=== PATIENT | male | born 1990 | race Caucasian/White ===

== ENCOUNTER 2017-01-16 10:58 | Emergency (ER) | payer BC ==
[2017-01-16] MEDS ORDERED: Ketorolac INJ* 30 MG/ML 1 ML VIAL IV ONE (11:25)
[2017-01-16] MEDS ORDERED: diPHENhydraMINE IV* 50 MG/ML 1 ml VIAL (BENADRYL) IV ONE ×2 (11:25→12:12)
[2017-01-16] MEDS ORDERED: NS 0.9% 1000 ML* 1,000 ML IV ONE ×2 (11:25→14:09)
[2017-01-16] MEDS ORDERED: Metoclopramide IV* 5 MG/ML 2 ML VIAL IV ONE (11:25)
--- NOTE | 2017-01-16 11:49 | RAD ---
INDICATION: Headache. COMPARISON: There are no prior studies available for comparison. TECHNIQUE: Contiguous axial sections of the brain were obtained from the skull base to the vertex without contrast. FINDINGS: The ventricles, cisterns and sulci are within normal limits. No significant focal abnormality or mass effect is seen. There is no evidence for hemorrhage. There is a small cyst or prominent perivascular space in the left temporal lobe. There is near complete opacification of the sphenoid sinus. The visualized portion of the paranasal sinuses and mastoid air cells otherwise appear clear. IMPRESSION: 1. NO EVIDENCE FOR ACUTE INTRACRANIAL ABNORMALITY. 2. SPHENOID SINUSITIS.
[2017-01-16 11:58] LABS: Hematocrit 46 % (42-52); Hemoglobin 15.7 g/dl (14.0-18.0); Mean Corpuscular HGB Conc 34 g/dl (31-36); Mean Corpuscular Hemoglobin 30 pg (27-31); Mean Corpuscular Volume 87 fL (80-94); Mean Platelet Volume 9 um3 (7.4-10.4); Red Blood Count 5.23 10^6/ul (4.0-5.4); Red Cell Distribution Width 13 % (10.5-15); White Blood Count 8.9 10^3/ul (3.5-10.8)
[2017-01-16 12:13] LABS: Albumin 4.8 g/dL (3.2-5.2); BUN/Creatinine Ratio 12.6 (8-20); Calcium 9.7 mg/dL (8.6-10.3); EGFR African American 103.8 (>60); EGFR Non-African American 80.7 (>60); Globulin 2.8 g/dL (2-4); Potassium 3.9 mmol/L (3.5-5.0); Total Bilirubin 0.7 mg/dL (0.2-1.0); Total Protein 7.6 g/dL (6.4-8.9)
[2017-01-16 13:29] LABS: Erythrocyte Sed Rate 9 mm/Hr (0-14)
[2017-01-16 13:59] LABS: Urine Bilirubin Negative (Negative); Urine Glucose Negative (Negative); Urine Nitrite Negative (Negative)
[2017-01-16 15:37] VITALS: BP 129/79
--- NOTE | 2017-01-17 09:03 | ED ---
Adriana Del Rio Alfonso, scribed for Anthony Hogue MD on 01/16/17 at 1136 . Headache - HPI Summary HPI Summary: This patient is a 26 year old male presenting to [facility] for a migraine which began two weeks ago. The pain starts in his eyes and radiates to the temporal region. It does not radiate to his neck. His pain is rated 5.5/10 in severity. It is described as a throbbing pain that is squeezing my head like a melon. Sx are aggravated by light and noise and alleviated by nothing. He reports vomiting in the mornings. He denies fever or chills. Allergies to Penicillin and Amoxicillin. - History Of Current Complaint Chief Complaint: EDHeadache Stated Complaint: HEADACHE Time Seen by Provider: 01/16/17 11:16 Hx Obtained From: Patient Onset/Duration: Sudden Onset, Started weeks ago - 2 weeks ago, Still Present Initially Headache Was: Initial Pain Scale(0-10)= - 5.5, Moderate Currently Pain Is: Current Pain Scale(0-10)= - 5.5 Timing: Constant Character: Throbbing, Pressure - squeezing my head like a melon Location of Headache: Frontal - Starts in eyes, Temporal - Radiates to Radiates to: Radiates to temporal; Does not radiate to neck Aggravating Factor: Bright Lights, Other - noise Allevating Factors: Nothing Associated Signs And Symptoms: Vomiting - In the mornings - Allergies/Home Medications Allergies/Adverse Reactions: Allergies Allergy/AdvReac Type Severity Reaction Status Date / Time Amoxicillin Allergy Rash Verified 01/16/17 11:33 Penicillins Allergy Rash Verified 01/16/17 11:33 PMH/Surg Hx/FS Hx/Imm Hx Musculoskeletal History: Reports: Hx Arthritis - LEFT FOOT Sensory History: Reports: Hx Contacts or Glasses - GLASSES Denies: Hx Hearing Aid Opthamlomology History: Reports: Hx Contacts or Glasses - GLASSES - Surgical History Surgery Procedure, Year, and Place: T+A A CHILD. LEFT FOOT- SUBTULAR FUSION - [facility] [place]-2014 Hx Anesthesia Reactions: Yes - EMERGENCE DELIRIUM WITH T&A Infectious Disease History: Denies: Traveled Outside the [place] in Last 30 Days - Family History Known Family History: Positive: Cardiac Disease - Both grandfathers - Social History Alcohol Use: Rare Hx Substance Use: No Substance Use Type: Reports: None Hx Tobacco Use: No Smoking Status (MU): Never Smoked Tobacco Review of Systems Negative: Fever, Chills Positive: Vomiting - In the mornings Positive: Headache - migraine which began two weeks ago All Other Systems Reviewed And Are Negative: Yes Physical Exam - Summary Physical Exam Summary: VITAL SIGNS: Reviewed. GENERAL: Patient is a well-developed and nourished MALE who is lying comfortable in the stretcher. Patient is not in any acute respiratory distress. HEAD AND FACE: No signs of trauma. No ecchymosis, hematomas or skull depressions. No sinus tenderness. EYES: PERRLA, EOMI x 2, No injected conjunctiva, no nystagmus. No photophobia. EARS: Hearing grossly intact. Ear canals and tympanic membranes are within normal limits. MOUTH: Oropharynx within normal limits. NECK: Supple, trachea is midline, no adenopathy, no JVD, no carotid bruit, no c- spine tenderness, neck with full ROM. No meningeal signs, no Kernig's or brudzinskis signs. CHEST: Symmetric, no tenderness at palpation LUNGS: Clear to auscultation bilaterally. No wheezing or crackles. CVS: Regular rate and rhythm, S1 and S2 present, no murmurs or gallops appreciated. ABDOMEN: Soft, non-tender. No signs of distention. No rebound no guarding, and no masses palpated. Bowel sounds are normal. EXTREMITIES: FROM in all major joints, no edema, no cyanosis or clubbing. NEURO: Alert and oriented x 3. No acute neurological deficits. Speech is normal and follows commands. SKIN: Dry and warm Triage Information Reviewed: Yes Vital Signs On Initial Exam: Initial Vitals Temp Pulse Resp BP Pulse Ox 97.9 F 71 20 146/73 99 01/16/17 11:00 01/16/17 11:00 01/16/17 11:00 01/16/17 11:00 01/16/17 11:00 Vital Signs Reviewed: Yes Diagnostics - Vital Signs Vital Signs Temp Pulse Resp BP Pulse Ox 01/16/17 11:00 97.9 F 71 20 146/73 99 - Laboratory Result Diagrams: 01/16/17 11:50 01/16/17 11:50 Lab Statement: Any lab studies that have been ordered have been reviewed, and results considered in the medical decision making process. - CT Brain CT CT Interpretation: No Acute Changes - 1. NO EVIDENCE FOR ACUTE INTRACRANIAL ABNORMALITY. 2. SPHENOID SINUSITIS. CT Interpretation Completed By: Radiologist Re-Evaluation - Re-Evaluation First Eval Re-Evaluation Time: 14:23 Change: Improved Comment: Symptoms have improved. Prescription for pain medication and Z-JUSTO. Will discharge home for follow up with PCP. Headache Course/Dx - Course Assessment/Plan: Test results within normal limits. I did a CT head as per the patient reported no past history of headaches. In the ED course, patientt was given IV fluid, Benadryl, Reglan, and Torodol for the headache. The symptoms significantly improved. The CT head show patient has sphenoid sinusitis. Since the patient has been having the symptoms for the last 10 days, I will place on patient on azithromycin. The patient does not have any fever, headache has improved, patient denies any photophobia or neck pain currently, therefore I have low suspicion of meningitis. Therefore, I do not see the need for a lumbar puncture. I have low suspicion for a brain bleed since the sx improved. The patient was advised to return to the ED if any of the symptoms return or worsen. He understands and agrees. - Diagnoses Provider Diagnoses: Acute sinusitis, Headache Discharge - Discharge Plan Condition: Stable Disposition: HOME Prescriptions: Azithromycin TAB* [Zithromax TAB (Z-JUSTO) 250 mg #6 tabs] 2 tab PO .TODAY, THEN 1 DAILY #1 justo HYDROcodone/ACETAMIN 5-325 MG* [[place] 5-325 TAB*] 1 tab PO Q6H PRN #10 tab MDD 4 tabs / day PRN Reason: Pain Patient Education Materials: Sinusitis (ED), General Headache (ED) Referrals: [facility] PHYSICIAN REFERRAL [Outside] - 3 Days The documentation as recorded by the Adriana zhang Alfonso accurately reflects the service I personally performed and the decisions made by me, Anthony Hogue MD.
== END 2017-01-16 15:38 | disposition home or self-care (01) ==
LOC: ED 10:58
DX: J01.90 Acute sinusitis, unspecified (principal); R51 Headache; R11.10 Vomiting, unspecified
CPT/HCPCS: 36415; 70450; 80053; 81003; 85025; 85652; 96374; 96375; 99283; J1200; J1885

== ENCOUNTER 2017-04-21 04:41 | Emergency (ER) | payer BC ==
[2017-04-21 04:58] VITALS: BP 140/85
[2017-04-21] MEDS ORDERED: Clindamycin CAP* 150 MG PO ONE (07:24)
--- NOTE | 2017-04-21 07:35 | ED ---
Shivam Del Rio Angela, scribed for Anthony Rose MD on 04/21/17 at 0724 . Throat Pain/Nasal Congestion - HPI Summary HPI Summary: This pt is a 26 y/[facility] upper [facility] and pain x4 days. Pt reports that he had an abscess tooth last year and this feels like one. He has taken ibuprofen for the pain, his last dose was today at 0400. He denies fever, chills. Pt denies smoking, drinking alcohol. He reports he is a allergic to amoxicillin and penicillin. - History of Current Complaint Chief Complaint: EDDentalPain Time Seen by Provider: 04/21/17 07:19 Hx Obtained From: Patient Onset/Duration: Lasting Days - Allergies/Home Medications Allergies/Adverse Reactions: Allergies Allergy/AdvReac Type Severity Reaction Status Date / Time Amoxicillin Allergy Rash Verified 01/16/17 11:33 Penicillins Allergy Rash Verified 01/16/17 11:33 PMH/Surg Hx/FS Hx/Imm Hx Endocrine/Hematology History: Denies: Hx Diabetes Cardiovascular History: Denies: Hx Hypertension Musculoskeletal History: Reports: Hx Arthritis - LEFT FOOT Sensory History: Reports: Hx Contacts or Glasses - GLASSES Denies: Hx Hearing Aid Opthamlomology History: Reports: Hx Contacts or Glasses - GLASSES - Surgical History Surgery Procedure, Year, and Place: T+A A CHILD. LEFT FOOT- SUBTULAR FUSION - [facility] [place] Hx Anesthesia Reactions: Yes - EMERGENCE DELIRIUM WITH T&A Infectious Disease History: No Infectious Disease History: Denies: Traveled Outside the [place] in Last 30 Days - Family History Known Family History: Positive: Cardiac Disease - Both grandfathers, Hypertension, Other - Cancer - mother's side - Social History Occupation: Employed Full-time Alcohol Use: Rare Hx Substance Use: No Substance Use Type: Reports: None Hx Tobacco Use: No Smoking Status (MU): Never Smoked Tobacco Review of Systems Negative: Fever, Chills Eyes: Negative Positive: Dental Pain - right upper face pain and swelling Cardiovascular: Negative Respiratory: Negative Gastrointestinal: Negative Genitourinary: Negative Musculoskeletal: Negative Skin: Negative Neurological: Negative All Other Systems Reviewed And Are Negative: Yes Physical Exam Triage Information Reviewed: Yes Vital Signs On Initial Exam: Initial Vitals Temp Pulse Resp BP Pulse Ox 99.1 F 92 18 140/85 97 04/21/17 04:55 09/11/17 04:55 04/21/17 04:55 04/21/17 04:55 04/21/17 04:55 Vital Signs Reviewed: Yes Appearance: Positive: Well-Appearing, No Pain Distress Skin: Positive: Warm, Skin Color Reflects Adequate Perfusion Head/Face: Positive: Normal Head/Face Inspection Eyes: Positive: EOMI, LOBO Dental: Positive: Gross Decay/Caries @ - tooth number 2 with gingival swelling. Neck: Positive: Supple, Nontender Respiratory/Lung Sounds: Positive: Clear to Auscultation, Breath Sounds Present Cardiovascular: Positive: RRR. Negative: Murmur Abdomen Description: Positive: Nontender Musculoskeletal: Positive: Strength/ROM Intact Neurological: Positive: Sensory/Motor Intact, Alert, Oriented to Person Place, Time, CN Intact II-III Psychiatric: Positive: Normal Diagnostics - Vital Signs Vital Signs Temp Pulse Resp BP Pulse Ox 04/21/17 04:55 99.1 F 92 18 140/85 97 - Laboratory Lab Statement: Any lab studies that have been ordered have been reviewed, and results considered in the medical decision making process. EENT Course/Dx - Course Course Of Treatment: 26 yr old male with dental infection. Rx with clindamycin. He has Dr Francisco as a prior provider of dental care. - Diagnoses Provider Diagnoses: Dental abscess Discharge - Discharge Plan Condition: Good Disposition: HOME Prescriptions: Clindamycin Cap(NF) [Clindamycin Cap 300 mg Cap(NF)] 300 mg PO Q6H #40 cap Patient Education Materials: Dental Abscess (ED) Referrals: Villa Francisco MD [Doctor of Dental Medicine] - 3 Days No Primary Care Phys,NOPCP [Primary Care Provider] - The documentation as recorded by the Shivam zhang Angela accurately reflects the service I personally performed and the decisions made by Rose kim Walter, MD.
== END 2017-04-21 07:38 | disposition home or self-care (01) ==
LOC: ED 04:41
DX: K04.7 Periapical abscess without sinus (principal)
CPT/HCPCS: 99282; A9270-GY

== ENCOUNTER 2019-09-09 10:37 | Emergency (ER) | payer BC, OTHER ==
--- NOTE | 2019-09-09 11:17 | ED ---
Influenza-Like Illness - HPI Summary HPI Summary: Patient is a 29-year-old male who presents emergency department for flulike symptoms 4 days. Patient notes nasal congestion, ear fullness, sore throat and mild cough. 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 No significant past medical history. Symptoms are mild in severity. No current modifying factors. - History of Current Complaint Chief Complaint: EDFluSymptoms Time Seen by Provider: 09/09/19 11:07 Hx Obtained From: Patient - Allergy/Home Medications Allergies/Adverse Reactions: Allergies Allergy/AdvReac Type Severity Reaction Status Date / Time amoxicillin AdvReac Rash Verified 09/09/19 10:40 Penicillins AdvReac Rash Verified 09/09/19 10:40 PMH/Surg Hx/FS Hx/Imm Hx Previously Healthy: Yes Endocrine/Hematology History: Denies: Hx Diabetes Cardiovascular History: Denies: Hx Hypertension Musculoskeletal History: Reports: Hx Arthritis - LEFT FOOT Sensory History: Reports: Hx Contacts or Glasses - GLASSES Denies: Hx Hearing Aid Opthamlomology History: Reports: Hx Contacts or Glasses - GLASSES - Surgical History Surgery Procedure, Year, and Place: T+A A CHILD. LEFT FOOT- [place] [facility] [place] Hx Anesthesia Reactions: Yes - EMERGENCE DELIRIUM WITH T&A Infectious Disease History: No Infectious Disease History: Denies: Traveled Outside the [place] in Last 30 Days - Family History Known Family History: Positive: Cardiac Disease - Both grandfathers, Hypertension, Other - Cancer - mother's side, Non-Contributory - Social History Occupation: Employed Full-time Lives: With Family Alcohol Use: Rare Hx Substance Use: No Substance Use Type: Reports: None Hx Tobacco Use: No Smoking Status (MU): Never Smoked Tobacco Review of Systems Constitutional: Negative Negative: Fever Eyes: Negative Positive: Sore Throat, Nasal Discharge Cardiovascular: Negative Positive: Cough. Negative: Shortness Of Breath Gastrointestinal: Negative Negative: Abdominal Pain, Vomiting, Diarrhea Musculoskeletal: Negative Skin: Negative Negative: Rash Neurological: Negative All Other Systems Reviewed And Are Negative: Yes Physical Exam Triage Information Reviewed: Yes Vital Signs On Initial Exam: Initial Vitals Temp Pulse Resp BP Pulse Ox 97.4 F 94 18 144/84 96 09/09/19 10:39 09/09/19 10:39 09/09/19 10:39 09/09/19 10:39 09/09/19 10:39 Vital Signs Reviewed: Yes Appearance: Positive: Well-Appearing - Patient sitting on bed in no acute distress. Skin: Positive: Warm, Dry Head/Face: Positive: Normal Head/Face Inspection Eyes: Positive: Normal, EOMI, LOBO, Conjunctiva Clear ENT: Positive: Pharyngeal erythema, Nasal congestion, Uvula midline, Other - Fluid behind bilateral TMs without erythema.. Negative: Tonsillar swelling, Tonsillar exudate, Muffled voice, Hoarse voice Neck: Positive: Supple, Nontender, No Lymphadenopathy Cardiovascular: Positive: Normal, RRR Neurological: Positive: Normal, CN Intact II-III Psychiatric: Positive: Affect/Mood Appropriate Procedures - Sedation Patient Received Moderate/Deep Sedation with Procedure: No Diagnostics - Vital Signs Vital Signs Temp Pulse Resp BP Pulse Ox 09/09/19 10:39 97.4 F 94 18 144/84 96 - Laboratory Lab Results: Lab Results 09/09/19 Range/Units 10:47 Influenza A (Rapid) Pending Influenza B (Rapid) Pending Lab Statement: Any lab studies that have been ordered have been reviewed, and results considered in the medical decision making process. Flu Symptom Course/Dx - Course Course Of Treatment: Patient with above symptoms. Is afebrile and well- appearing. Negative influenza. Suspect viral etiology. Recommended Tylenol or Motrin for discomfort as directed. Take [id number] decongestant. Follow-up with the [facility] if symptoms persist. Patient understands and agrees with plan. - Diagnoses Differential Diagnosis/HQI/PQRI: Positive: Influenza, Upper Respiratory Infection Provider Diagnoses: Upper respiratory infection, viral Discharge ED - Sign-Out/Discharge Documenting (check all that apply): Patient Departure - Discharge Plan Condition: Good Disposition: HOME Patient Education Materials: Viral Syndrome (ED) Referrals: [facility] [Outside] Additional Instructions: Follow up with the [facility] if symptoms persist Tylenol or Motrin for discomfort as directed Recommend an over the counter decongestant such as Sudafed as directed Increase fluids and rest Return to ER if symptoms change or worsen - Billing Disposition and Condition Condition: GOOD Disposition: Home
[2019-09-09 11:23] LABS: Influenza A Molecular Negative (Negative); Influenza B Molecular Negative (Negative)
[2019-09-09 12:27] VITALS: BP 129/74
== END 2019-09-09 12:10 | disposition home or self-care (01) ==
LOC: ED 10:37
DX: J06.9 Acute upper respiratory infection, unspecified (principal); B34.9 Viral infection, unspecified; Z88.0 Allergy status to penicillin
CPT/HCPCS: 99282